=== PATIENT | male | born 1950 | race Caucasian/White ===

== ENCOUNTER 2016-11-02 18:27 | Emergency (ER) | payer MEDICARE, MEDICAID ==
--- NOTE | 2016-11-02 19:01 | Emergency Department Record ---
History of Present Illness - General Chief Complaint: Fall Injury Stated Complaint: FALL Source: Patient Mode of Arrival: EMS Limitations: No limitations - History of Present Illness Initial Comments: 65 yo male presents after a fall. The patient was standing up, leaned over to cloth picker something on the floor and fell over. He landed on the floor on his right chest. No head or neck injury. He did not hit his head. His only complaint is mid right rib pain. No back or abdominal pain. He has balance issues and has history of occasional falls. He lives in a memory care facility. Complaint: Fall Onset/Timin -: Hour(s) Fall From: Standing When Fall Occurred: Recurrent falls, Other Fall Witnessed: Yes, by living facility staff Place Fall Occurred: retirement/SNF Loss of Consciousness: None Prolonged Down Time?: No Symptoms Prior to Fall: None Location: Chest Severity: Moderate Severity scale (1-10): 9 Quality: Sharp Context: History of frequent falls Associated Symptoms: Denies - Stephen Coma Scale Eye Response: (4) Open spontaneously Motor Response: (6) Obeys commands Verbal Response: (5) Oriented Stephen Total: 15 - Related Data Home Medications Medication Instructions Recorded Confirmed Last Taken Acetaminophen [Tylenol 325Mg] 650 mg PO Q4H PRN 09/09/16 11/02/16 Unknown Amlodipine Besylate [Norvasc] 5 mg PO DAILY 09/09/16 11/02/16 09/08/16 Bisacodyl [Dulcolax] 10 mg CA ASDIR PRN 09/09/16 11/02/16 Unknown Bismuth Subsalicylate 30 ml PO Q6H PRN 09/09/16 11/02/16 Unknown [Pepto-Bismol] Clonazepam [Klonopin] 0.5 mg PO QPM 09/09/16 11/02/16 09/08/16 Clopidogrel Bisulfate [Plavix] 75 mg PO DAILY 09/09/16 11/02/16 09/08/16 Docusate Sodium [Colace] 100 mg PO BID PRN 09/09/16 11/02/16 Unknown Donepezil HCl [Aricept] 10 mg PO DAILY 09/09/16 11/02/16 09/08/16 Ergocalciferol (Vitamin D2) 50,000 unit PO WEEKLY 09/09/16 11/02/16 09/02/16 [Vitamin D2] Fenofibrate [Lofibra] 160 mg PO DAILY 09/09/16 11/02/16 09/08/16 Gabapentin [Neurontin] 300 mg PO BID 09/09/16 11/02/16 09/08/16 Gabapentin [Neurontin] 600 mg PO QHS 09/09/16 11/02/16 09/08/16 Guaifenesin/Dextromethorphan 10 ml PO ASDIR PRN 09/09/16 09/09/16 Unknown [Robitussin Cough-Chest Dm Liq] Hydrochlorothiazide [Hctz 25Mg] 25 mg PO DAILY 09/09/16 11/02/16 09/08/16 Ketoconazole [Nizoral A-D] 125 ml TP ASDIR PRN 09/09/16 11/02/16 Unknown Lisinopril [Zestril] 20 mg PO DAILY 09/09/16 11/02/16 09/08/16 Lorazepam [Ativan] 0.5 mg PO BID PRN 09/09/16 11/02/16 09/08/16 Magnesium Hydroxide [Milk of 30 ml PO ASDIR PRN 09/09/16 11/02/16 Unknown Magnesia] Multivitamin [Multi-Vitamin Daily] 1 each PO DAILY 09/09/16 11/02/16 09/08/16 Pioglitazone HCl [Actos] 45 mg PO DAILY 09/09/16 11/02/16 09/08/16 Pravastatin Sodium [Pravachol] 20 mg PO QHS 09/09/16 11/02/16 09/08/16 Psyllium Husk [Metamucil] 5 ml PO BID 09/09/16 11/02/16 Unknown Quetiapine Fumarate [Seroquel] 50 mg PO BID 09/09/16 11/02/16 09/08/16 Sertraline HCl [Zoloft] 50 mg PO DAILY 09/09/16 11/02/16 09/08/16 Solifenacin Succinate [Vesicare] 10 mg PO DAILY 09/09/16 11/02/16 09/08/16 Venlafaxine HCl [Effexor] 75 mg PO TID 09/09/16 11/02/16 09/08/16 Allergies Allergy/AdvReac Type Severity Reaction Status Date / Time No Known Drug Allergies Allergy Verified 11/02/16 18:45 Travel Screening - Travel/Exposure Within Last 30 Days Have you traveled within the last 30 days?: No - Travel/Exposure Within Last Year Have you traveled outside the [place] in the last year?: No - Additonal Travel Details Have you been exposed to anyone with a communicable illness?: No - Travel Symptoms Symptom Screening: None Review of Systems ROS unobtainable: Other (Memory issues, provides additional history) Constitutional: Denies: Chills, Fever, Malaise, Night sweats, Weakness Eyes: Denies: Eye discharge, Eye pain, Photophobia, Vision change ENT: Denies: Congestion Respiratory: Denies: Cough, Dyspnea, Hemoptysis, Stridor, Wheezes Cardiovascular: Reports: Chest pain (right ribs). Denies: Dyspnea on exertion, Edema, Palpitations Endocrine: Denies: Fatigue Gastrointestinal: Denies: Abdominal pain, Diarrhea, Nausea, Vomiting Genitourinary: Denies: Dysuria Musculoskeletal: Denies: Arthralgia, Back pain, Joint swelling, Myalgia, Neck pain Skin: Denies: Bruising, Change in color, Change in hair/nails, Pruritus Neurological: Reports: Confusion (chronic memory issues). Denies: Headache, Weakness Psychiatric: Denies: Anxiety Hematological/Lymphatic: Denies: Blood Clots, Easy bleeding, Easy bruising Past Medical History - SOCIAL HISTORY Smoking Status: Never smoker Alcohol Use: None Drug Use: None - RESPIRATORY Hx Respiratory Disorders: No - CARDIOVASCULAR Hx Cardio Disorders: Yes Hx Heart Attack: Yes Hx Hypertension: Yes Comment:: Hyperlipidemia - NEURO Hx Neuro Disorders: Yes Hx CVA: Yes Hx Dementia: Yes - GI Hx GI Disorders: No - Hx Genitourinary Disorders: Yes Hx Renal Disease: Yes Comment:: OAB - ENDOCRINE Hx Endocrine Disorders: Yes Hx Diabetes: Yes - MUSCULOSKELETAL Hx Musculoskeletal Disorders: No - PSYCH Hx Psych Problems: No - HEMATOLOGY/ONCOLOGY Hx Hematology/Oncology Disorders: No Family Medical History Any Significant Family History?: Yes Family Hx Comment (NOT TO BE USED IN PLACE OF ITEMS BELOW): unknown Hx Cancer: Father, Brother/Sister Hx Heart Disease: Brother/Sister Hx Resp Disorders: Mother Hx Stroke: Father Physical Exam - General General Appearance: Alert, Cooperative, No acute distress - Head Head exam: Atraumatic, Normocephalic, Normal inspection Head exam detail: negative: Abrasion, Contusion, General tenderness, Hematoma, Laceration - Eye Eye exam: Normal appearance, PERRL. negative: Conjunctival injection, Scleral icterus - ENT ENT exam: Normal exam, Mucous membranes moist, Normal external ear exam, Normal orophraynx Ear exam: Normal external inspection. negative: External canal tenderness Nasal Exam: Normal inspection. negative: Discharge, Sinus tenderness Mouth exam: Normal external inspection, Tongue normal Throat exam: Normal inspection. negative: Tonsillar erythema, Tonsillar exudate - Neck Neck exam: Normal inspection, Full ROM. negative: Meningismus, Tenderness - Respiratory Respiratory exam: Normal lung sounds bilaterally, Chest wall tenderness (tender mid lateral chest wall, normal inspection, no SQ crepitus). negative: Prolonged expiratory, Respiratory distress, Stridor, Wheezes - Cardiovascular Cardiovascular Exam: Regular rate, Normal rhythm, Normal heart sounds - GI/Abdominal GI/Abdominal exam: Soft. negative: Distended, Guarding, Rigid, Tenderness - Rectal Rectal exam: Deferred - exam: Deferred - Extremities Extremities exam: Normal inspection, Full ROM, Normal capillary refill. negative: Tenderness - Back Back exam: Reports: Normal inspection, Full ROM. Denies: CVA tenderness (R), CVA tenderness (L), Muscle spasm, Paraspinal tenderness, Rash noted, Tenderness , Vertebral tenderness - Neurological Neurological exam: Alert. negative: Motor sensory deficit - Psychiatric Psychiatric exam: Normal affect, Normal mood - Skin Skin exam: Dry, Intact, Normal color, Warm Course Vital Signs 11/02/16 18:46 Temperature 99 F Pulse Rate 89 Respiratory 20 Rate Blood Pressure 152/81 Pulse Ox 96 - Reevaluation(s) Reevaluation #1: Vitals reviewed No acute changes. 11/02/16 18:56 Reevaluation #2: XR report was reviewed No acute changes. No PTX or rib fracture DC home with supportive care instructions as well as reasons to return for a recheck 11/02/16 20:04 Disposition Disposition: Discharge Clinical Impression: Contusion of rib on right side Qualifiers: Encounter type: initial encounter Qualified Code(s): S20.211A - Contusion of right front wall of thorax, initial encounter Disposition: Home, Self-Care Condition: (1) Good Instructions: Rib Fracture (ED) Additional Instructions: The Xray that was taken was negative for any injury today You are being given instructions for rib fractures because the treatment at home is similar to chest wall or rib bruises. Immediately return if the pain worsens, any shortness of breath, cough or new concerns or pains Tylenol as directed for pain Recheck with the family doctor or ER in the next 2-3 days if any concerns and sooner if worse. Forms: Patient Portal Access Time of Disposition: 20:06
[2016-11-02] MEDS ORDERED: ACETAMINOPHEN 500 MG TABLET PO ONE (20:06)
== END 2016-11-02 20:24 | disposition home or self-care (01) ==
LOC: ER 18:27
DX: S20.211A Contusion of right front wall of thorax, initial encounter (principal); F03.90 Unspecified dementia, unspecified severity, without behavioral disturbance, psychotic disturbance, mood disturbance, and anxiety; W18.39XA Other fall on same level, initial encounter; Y92.199 Unspecified place in other specified residential institution as the place of occurrence of the external cause; Z91.81 History of falling
CPT/HCPCS: 99283